=== PATIENT | male | born 2005 | race Hispanic/Latino ===

== ENCOUNTER 2024-07-25 17:06 | Emergency (ER) | payer OTHER, BC ==
[~2024-07-25] VITALS: Ht 177.8 cm; Wt 79.0 kg
[2024-07-25 20:20] LABS: BASOPHILS 0.4 % (0.2-1.2); EOSINOPHILS 0.5 % (0.8-7.0); HEMATOCRIT 42.8 % (40.1-51.0); LYMPHOCYTES 29.5 % (21.8-53.1); MCH 29.7 PG (25.7-32.2); MCHC 32.7 g/dL (32.3-36.5); MCV 90.9 fL (79.0-92.2); MONOCYTES 8.8 % (5.3-12.2); NEUTROPHILS 60.4 % (34.0-67.9); PLATELET COUNT 152 K/uL (163-337); RBC 4.71 M/uL (4.63-6.08)
[2024-07-25 20:27] LABS: BILIRUBIN, URINE NEGATIVE (negative); BLOOD/HGB, URINE NEGATIVE (Negative); KETONE, URINE NEGATIVE (Negative); LEUK ESTERASE, URINE NEGATIVE (negative); NITRITE, URINE NEGATIVE (negative); PH, URINE 7.5 (5-7)
[2024-07-25 20:36] LABS: ALBUMIN/GLOBULIN RATIO 1.48 (1.1-2.4); ALCOHOL, MEDICAL <3 ng/dL (<3); ALKALINE PHOSPHATASE 65 U/L (46-116); ALT (SGPT) 76 U/L (14-59); AST (SGOT) 32 U/L (15-37); BILIRUBIN, TOTAL 0.5 mg/dL (0.2-1.0); CALCIUM 8.9 mg/dL (8.5-10.1); CARBON DIOXIDE 29 mmol/L (21-32); CHLORIDE 106 mmol/L (98-107); CREATININE, SERUM 1.05 mg/dL (0.70-1.30); GLOMERULAR FILTRATION RATE,EST 104 mL/min (>60); PROTEIN, TOTAL 6.7 g/dL (6.4-8.2); UREA NITROGEN 23 mg/dL (7-18)
[2024-07-25 20:48] LABS: AMPHETAMINES, URINE NEGATIVE (NEGATIVE); BENZODIAZEPINE, URINE NEGATIVE (NEGATIVE); BUPRENORPHINE, URINE NEGATIVE (NEGATIVE); CANNABINOID, URINE POSITIVE (NEGATIVE); COCAINE, URINE NEGATIVE (NEGATIVE); ECSTASY, URINE NEGATIVE (NEGATIVE); FENTANYL, URINE NEGATIVE (NEGATIVE); METHADONE, URINE NEGATIVE (NEGATIVE); OPIATES, URINE NEGATIVE (NEGATIVE); OXYCODONE, URINE NEGATIVE (NEGATIVE); PHENCYCLIDINE, URINE NEGATIVE (NEGATIVE)
[2024-07-25] MEDS ORDERED: TRAMADOL HCL50 MG PO (21:07)
[2024-07-25] MEDS ORDERED: TRAMADOL HCL 50 MG HOME.PACK PO ONE (21:15)
[2024-07-25] MEDS ORDERED: DIPHTH,PERTUSS(ACELL),TET VAC 0.5 ML SYRINGE IM ONE (21:30)
[2024-07-25] MEDS ORDERED: TETANUS-DIPHTHERIA TOXOIDS/PF 0.5 ML VIAL IM ONE (21:30)
[2024-07-25 21:43] VITALS: BP 123/80
== END 2024-07-25 21:40 | disposition home or self-care (01) ==
LOC: ED 17:06
PROVIDERS: Family Medicine
DX: S06.6X9A Traumatic subarachnoid hemorrhage with loss of consciousness of unspecified duration, initial encounter (principal); V89.2XXA Person injured in unspecified motor-vehicle accident, traffic, initial encounter
CPT/HCPCS: 36415; 70450; 72125; 80053; 80307; 81003; 85025; 90471; 90715; 99284-25; A9270; G0480